=== PATIENT | female | born 1965 | race Caucasian/White ===

== ENCOUNTER 2021-02-10 01:19 | Emergency (ER) | payer BC, SELFPAY ==
[2021-02-10 01:32] VITALS: BP 154/103; PULSE 103; RESP 20; TEMP 36.6; O2SAT 99
--- NOTE | 2021-02-10 01:45 | ED.GENADULT ---
HPI - General Adult General Chief complaint: Dental/Oral Stated complaint: tooth ache Time Seen by Provider: 02/10/21 01:38 History of Present Illness HPI narrative: Patient 55-year-old female that presents emerged from with chief complaint of dental pain. Patient reports that she started having swelling in her lower mandible a couple days ago reports has gotten worse today and reports has been seeing dentist. Patient states she is not on antibiotics right now. The patient denies fever denies shortness of breath denies difficulty swallowing. Related Data Allergies Allergy/AdvReac Type Severity Reaction Status Date / Time No Known Allergies Allergy Verified 07/15/14 13:36 Review of Systems Review of Systems: A 10 system review of systems was completed on the patient and is negative except for what is stated in the HPI. Nursing and ancillary documentation was reviewed. Exam Narrative: GENERAL: Well-appearing, well-nourished, and in no acute distress. HEAD: Normocephalic, atraumatic. EYES: PERRLA and EOMI. ENT: Nares clear, no rhinorrhea or epistaxis. Mucous membranes moist. There is swelling of the lower mandible on the left side there is swelling in the buccal mucosa. There is no airway compromise NECK: Supple. CHEST: Clear to auscultation. No respiratory distress. HEART: Regular rate and rhythm. No murmur heard. Normal peripheral pulses. ABDOMEN: Soft, nontender, nondistended, normal active bowel sounds. EXTREMITIES: Normal range of motion. No edema. SKIN: Warm, dry, no rash. NEURO: No focal deficits. Alert and oriented x3. PSYCH: Normal mood and affect. Course Vital Signs Vital signs: Vital Signs Temperature 36.6 C 02/10/21 01:32 Pulse Rate 103 H 02/10/21 01:32 Respiratory Rate 20 02/10/21 01:32 Blood Pressure 154/103 H 02/10/21 01:32 Pulse Oximetry 99 02/10/21 01:32 Temperature 36.6 C 02/10/21 01:32 Pulse Rate 103 H 02/10/21 01:32 Respiratory Rate 20 02/10/21 01:32 Blood Pressure 154/103 H 02/10/21 01:32 Pulse Oximetry 99 02/10/21 01:32 Medical Decision Making Vital Signs Vital Signs: Vital Signs Temperature 36.6 C 02/10/21 01:32 Pulse Rate 103 H 02/10/21 01:32 Respiratory Rate 20 02/10/21 01:32 Blood Pressure 154/103 H 02/10/21 01:32 Pulse Oximetry 99 02/10/21 01:32 Temperature 36.6 C 02/10/21 01:32 Pulse Rate 103 H 02/10/21 01:32 Respiratory Rate 20 02/10/21 01:32 Blood Pressure 154/103 H 02/10/21 01:32 Pulse Oximetry 99 02/10/21 01:32 Discharge Plan Discharge Clinical Impression: Dental abscess Patient Disposition: Home, Self-Care Condition: Stable Instructions: Antibiotic Form, Dental Abscess (ED) Prescriptions: New amoxicillin 500 mg capsule 500 mg PO Q12H Qty: 20 RF: 0 Follow-up/Referrals: Klever Abarca MD [Physician] - Stand Alone Forms: Work/School Release IP Time of Disposition: 01:48
[2021-02-10] MEDS: AMOXICILLIN 500 MG CAPSULE PO (02:26)
[2021-02-10 02:35] VITALS: BP 146/93; PULSE 83; RESP 20; O2SAT 98
== END 2021-02-10 02:37 | disposition home or self-care (01) ==
PROVIDERS: Emergency Provider Emergency Medicine
DX: K04.7 Periapical abscess without sinus (principal)
CPT/HCPCS: 99283; A9270

== ENCOUNTER 2025-02-17 15:55 | Emergency (ER) | payer SELFPAY ==
[2025-02-17 16:05] VITALS: BP 163/115; PULSE 106; RESP 16; TEMP 35.8; O2SAT 100
[2025-02-17 16:35] VITALS: BP 160/90
--- NOTE | 2025-02-17 16:58 | ED_ITS ---
HPI - Ear Problem General Chief complaint: Ear Stated complaint: L ear infection, numb Time Seen by Provider: 02/17/25 16:31 Source: patient and RN notes reviewed Mode of arrival: ambulatory Limitations: no limitations History of Present Illness HPI Narrative: 59-year-old female patient presents today with 3 week history muffled hearing in the left ear without pain or drainage. She has tried swimmer's ear drops and wax remover at home without improvement. Related Data Home Medications ?Medication ?Instructions ?Recorded ?Confirmed ?Last Taken ?Type No Home Medications 02/17/25 02/17/25 U nknown History Allergies Allergy/AdvReac Type Severity Reaction Status Date / Time No Known Allergies Allergy Verified 02/17/25 16:06 [facility] Comments At time of signature, I have reviewed and agree with nursing past medical, surgical, social and family history unless otherwise noted. Please see nursing chart for further information. There is no relevant family history pertinent to the presenting complaint Exam Narrative: GENERAL: Well-appearing, well-nourished, and in no acute distress. HEAD: Normocephalic, atraumatic. EYES: EOMI. No redness or drainage. Conjunctivae normal. ENT: Mucous membranes pink and moist. Cerumen impaction on the left. See procedure note NECK: Normal AROM. CHEST: No respiratory distress. EXTREMITIES: Normal range of motion. No edema. SKIN: Warm, dry, no rash. Capillary refill normal. Normal skin turgor. NEURO: No focal deficits. Alert and oriented x3. Gait steady. PSYCH: Normal affect. No signs of depression or anxiety. Course Course Level of Care: Express Care Visit Vital Signs Vital signs: Vital Signs Temperature 96.5 F L 02/17/25 16:05 Pulse Rate 106 H 02/17/25 16:05 Respiratory Rate 16 02/17/25 16:05 Blood Pressure 163/115 H 02/17/25 16:05 Pulse Oximetry 100 02/17/25 16:05 Temperature 96.5 F L 02/17/25 16:05 Pulse Rate 106 H 02/17/25 16:05 Respiratory Rate 16 02/17/25 16:05 Blood Pressure 160/90 H 02/17/25 16:35 Pulse Oximetry 100 02/17/25 16:05 Reviewed Procedures Ear Wax Removal Left Ear: Ear Wax Removal Date: 02/17/25 Ear Wax Removal Time: 17:00 Cerumenolytic Used: other (Water with small amount of hydrogen peroxide) Results: Re-examined: cerumen removed completely TM Examination: TM(s) intact, normal appearance Ear Canal Exam: atraumatic Patient Tolerated Procedure: well Technique: ear canal irrigated and ear canal curetted Medical Decision Making MDM Narrative Medical decision making narrative: 59-year-old female patient presents today with a 3 week history of left sided muffled hearing. Upon exam, patient has left-sided cerumen impaction. Cerumen impaction removed with irrigation and curette. TM normal. Hearing restored. Anticipatory guidance given. Differential Diagnosis Differential Diagnosis: Otitis media, otitis externa, ruptured TM, serous otitis, cerumen impaction Vital Signs Vital Signs: Vital Signs Temperature 96.5 F L 02/17/25 16:05 Pulse Rate 106 H 02/17/25 16:05 Respiratory Rate 16 02/17/25 16:05 Blood Pressure 163/115 H 02/17/25 16:05 Pulse Oximetry 100 02/17/25 16:05 Temperature 96.5 F L 02/17/25 16:05 Pulse Rate 106 H 02/17/25 16:05 Respiratory Rate 16 02/17/25 16:05 Blood Pressure 160/90 H 02/17/25 16:35 Pulse Oximetry 100 02/17/25 16:05 Critical Care Time Critical Care Time Critical Care Time: No Discharge Plan Discharge Clinical Impression: Impacted cerumen of left ear Patient Disposition: Home Condition: Stable Additional Instructions: Ear wax was completely removed from your left ear. Follow-up with your PCP or ENT with any additional concerns. Patient Language: Brazilian Prescriptions: No Action No Home Medications Follow-up/Referrals: PHYSICIAN,MORTGAGE LOAN UNDERWRITER [Primary Care Provider, Internal Medicine] Time of Disposition: 17:02
== END 2025-02-17 17:09 | disposition home or self-care (01) ==
PROVIDERS: Emergency Provider Nurse Practitioner
DX: H61.22 Impacted cerumen, left ear (principal)
CPT/HCPCS: 69210; 99212; A9270; G0463